=== PATIENT | female | born 1970 | race American Indian/Alaskan Native ===

== ENCOUNTER 2020-07-28 16:41 | Emergency (ER) | payer OTHER ==
[~2020-07-28] VITALS: Ht 170.2 cm; Wt 61.2 kg
[2020-07-28] MEDS ORDERED: VENL75ER PO (17:15)
[2020-07-28] MEDS ORDERED: Atarax10 MG PO (17:16)
[2020-07-28] MEDS ORDERED: Ativan1 MG PO (17:16)
[2020-07-28] MEDS ORDERED: Vistaril25 MG PO (17:23)
[2020-07-28] MEDS ORDERED: Ativan0.5 MG PO (17:23)
[2020-07-28] MEDS ORDERED: ESZO2 PO (18:07)
[2020-07-28] MEDS ORDERED: MINIPRESS2 M1 PO (18:07)
[2020-07-28] MEDS ORDERED: VENL150ER PO (18:07)
== END 2020-07-28 18:31 | disposition home or self-care (01) ==
LOC: ER 16:41
DX: F41.9 Anxiety disorder, unspecified (principal); L29.9 Pruritus, unspecified; F17.200 Nicotine dependence, unspecified, uncomplicated; Z88.8 Allergy status to other drugs, medicaments and biological substances; Z79.899 Other long term (current) drug therapy
CPT/HCPCS: 99282